=== PATIENT | male | born 1960 | race Caucasian/White ===

== ENCOUNTER 2021-03-15 06:37 | Emergency (ER) | payer BC ==
[2021-03-15] MEDS ORDERED: ACETAMINOPHEN TAB 500 MG TAB PO STA (07:15)
[2021-03-15] MEDS ORDERED: SODIUM CHLORIDE 0.9% 1,000 ML IV ONE (07:15)
--- NOTE | 2021-03-15 07:21 | ED ---
General Adult HPI - General Chief complaint: Upper Respiratory Infection Stated complaint: COVID+ Time Seen by Provider: 03/15/21 06:59 Source: patient, RN notes reviewed, old records reviewed Mode of arrival: ambulatory Limitations: no limitations - History of Present Illness Initial comments: 61-year-old male presenting with fever, cough congestion, diarrhea. Patient's has coronavirus. He has not been tested but has symptoms suggestive of coronavirus. He is not immunized. He denies dyspnea or difficulty breathing. He's had no vomiting. His had a very poor appetite. Symptoms have been present for the past 7 days. He denies chronic medical conditions. - Related Data Allergies Allergy/AdvReac Type Severity Reaction Status Date / Time nickel Allergy Rash/Hives Verified 03/15/21 06:48 Review of Systems ROS Statement: Those systems with pertinent positive or pertinent negative responses have been documented in the HPI. ROS Other: All systems not noted in ROS Statement are negative. Past Medical History Past Medical History: No Reported History History of Any Multi-Drug Resistant Organisms: None Reported Past Surgical History: Hernia Repair Past Psychological History: No Psychological Hx Reported Smoking Status: Never smoker Past Alcohol Use History: None Reported Past Drug Use History: None Reported General Exam Limitations: no limitations General appearance: alert, in no apparent distress Head exam: Present: atraumatic, normocephalic Eye exam: Present: normal appearance ENT exam: Present: mucous membranes dry Neck exam: Present: normal inspection. Absent: tenderness, meningismus Respiratory exam: Present: normal lung sounds bilaterally. Absent: respiratory distress, wheezes Cardiovascular Exam: Present: regular rate, normal rhythm GI/Abdominal exam: Present: soft. Absent: distended, tenderness, guarding Neurological exam: Present: alert, oriented X3, CN II-XII intact. Absent: motor sensory deficit Psychiatric exam: Present: normal affect, normal mood Skin exam: Present: warm, dry, intact. Absent: cyanosis, diaphoretic Course Vital Signs 03/15/21 06:44 Temperature 102.8 F H Pulse Rate 93 Respiratory 18 Rate Blood Pressure 121/73 O2 Sat by Pulse 98 Oximetry Medical Decision Making - Medical Decision Making 59-year-old male with exposure to coronavirus, his has tested positive. Symptoms consistent with Covid. Patient is a candidate for monoclonal antibodies and agrees to treatment. He is transfused in the emergency department as well as given some IV fluid. He's advised to take vitamin C, vitamin D and sink. He is given strict return parameters and can monitor his oxygenation. He currently has no respiratory issues. Disposition Clinical Impression: COVID-19 Disposition: HOME SELF-CARE Condition: Fair Instructions (If sedation given, give patient instructions): Coronavirus Disease 2019 (COVID-19) Is patient prescribed a controlled substance at d/c from ED?: No Referrals: Nonstaff,Physician [Primary Care Provider] - 1-2 days Bob Wick [STAFF PHYSICIAN] - 1-2 days Time of Disposition: 09:30
[2021-03-15] MEDS ORDERED: BAMLANIVIMAB (EUA) 700 MG, ETESEVIMAB (EUA) 1,400 MG in SODIUM CHLORIDE 0.9% 50 ML IVPB ONE (08:00)
[2021-03-15] MEDS ORDERED: SODIUM CHLORIDE 0.9% 50 ML IVPB ONE (08:30)
[2021-03-15 09:17] VITALS: BP 114/71; PULSE 73; RESP 16; TEMP 98.9
== END 2021-03-15 09:17 | disposition home or self-care (01) ==
LOC: EC 06:37
DX: U07.1 COVID-19 (principal); Z91.048 Other nonmedicinal substance allergy status
CPT/HCPCS: 87635; 99284; 96374; J3490